=== PATIENT | male | born 1935 | race African-American/Black ===

== ENCOUNTER → 2016-11-19 | Outpatient (CLI) | payer MEDICARE ==
[~2016-11-19] MED LIST: ACTIGAL PO; ACTIGALL 300MG300 MG PO; ALLOPURINOL100 MG PO; ALLOPURINOL300 MG PO; AMBIEN 10MG10 MG PO; AMBIEN 5MG TABLE5 MG PO; AMBIEN10 MG PO; AMOXICILLIN PO; APRESOLINE 25MG25 MG PO; ASPI325T6 PO; CENTRUM SILVER1 TA1 PO; CEPHALEXIN500 M1 PO; COLCHICINE0.6 MG PO; COLCRYS0.6 MG PO; CORDARONE200 MG/TAB PO; COZAAR 50MG50 MG/TAB PO; CRESTOR5 MG PO; ELIQUIS 2.5 PO; FERROUS SU325 MG/TAB PO; FLOMAX 0.40.4 MG/CAP PO; GLUCOTROL XL10 MG PO; GLUCOTROL XL5 MG/TAB PO; GLUCOTROL10 MG PO; INSULIN 70/3100 U/ML SC; LACTULOSE PO; LASIX 20MG TABL20 MG PO; LEVEMIR100 U/ML SC; LEVEMIR100 U/ML SQ; LIPITOR 40MG TA40 MG PO; LISINOPRIL10 MG PO; LOPRESSOR 550 MG/TAB PO; NORCO 325 MG-51 TAB PO; NORVASC 10MG10 MG PO; NORVASC PO; NOVOLOG 100U100 U/M1 SQ; NOVOLOG FLEX100 U/ML SQ; NOVOLOG100 U/ML SC; OMEPRAZOLE40 MG PO; PACERONE200 MG PO; PEPCID 20MG TAB20 MG PO; PHOS LO PO; PLAVIX 75MG TAB75 MG PO; PRIL40 PO; PRILOSEC 20MG20 MG PO; PROTONIX20 MG PO; SILVADENE CREAM1 TU TP; SLOW-MAG 6464 MG/TAB PO; SODIUM BICARB PO; SODIUM BICARBO325 MG PO; SODIUM POL15 GM/60 M PO; TYLENOL 325MG325 MG PO; URSO250 MG PO; VANCOCIN HCL1 GM IV; VITAMIN D1000 IU PO; VITAMIN D32000 I1 PO; ZEMPLAR1 MCG PO; ZESTRIL 20MG TA20 MG PO; ZYLOPRIM 100MG100 MG; ZYLOPRIM 100MG100 MG PO
== END ==
LOC: COL.LAB 09:59 → COL.RAD 09:59
DX: Z11.1 Encounter for screening for respiratory tuberculosis (principal); I51.7 Cardiomegaly

== ENCOUNTER 2016-11-21 10:09 | Outpatient (CLI) | payer MEDICARE ==
[~2016-11-21] VITALS: Ht 180.3 cm; Wt 103.8 kg
[~2016-11-21 10:09] MED LIST changes: -LEVEMIR100 U/ML SQ
[2016-11-21 10:37] VITALS: BP 117/72; PULSE 66; TEMP 97.2
[2016-11-21] MEDS ORDERED: LEVEMIR100 U/ML SQ (11:02)
[2016-11-21 12:30] VITALS: BP 115/66; PULSE 75
[2016-11-21 13:45] VITALS: BP 122/71; PULSE 71
[2016-11-21 14:00] VITALS: BP 119/60; PULSE 66
== END 2016-11-21 14:24 | disposition home or self-care (01) ==
LOC: COL.RAD 10:09
DX: N18.6 End stage renal disease (principal); Z99.2 Dependence on renal dialysis; I10 Essential (primary) hypertension; E11.9 Type 2 diabetes mellitus without complications; Z79.4 Long term (current) use of insulin
CPT/HCPCS: Q9967